=== PATIENT | female | born 1990 | race Caucasian/White ===

== ENCOUNTER 2017-08-03 18:41 | Emergency (ER) | payer SELFPAY ==
[2017-08-03] MEDS ORDERED: ONDANSETRON INJ 4 MG/2 ML VIAL IV ONE (19:38)
[2017-08-03] MEDS ORDERED: MORPHINE SULFATE INJ 10 MG/ML VIAL IV ONE (19:38)
[2017-08-03] MEDS ORDERED: methylPREDNISolone SODIUM SUC 125 MG/2 ML VIAL IV ONE (19:38)
[2017-08-03 19:39] VITALS: TEMP 98.6
--- NOTE | 2017-08-03 19:42 | ED.PDOC ---
History of Present Illness - General Chief Complaint: Headache Stated Complaint: headache x's 7 days Time Seen by Provider: 08/03/17 18:50 Source: patient, RN notes reviewed, Vital Signs reviewed Exam Limitations: no limitations - History of Present Illness Initial Comments: Patient comes in with c/o frontal LOMELI X 7 days. Pressure in nature. + R eye pain initially. B eye watery and stinging intermittently. Saw her PCP who gave her Imitrex which did not help. + photophobia. + L earache. Timing/Duration: 1 week, constant Quality: pressure Head Injury Location: frontal Recent Head Trauma: no recent headache/trauma Improving Factors: nothing Worsening Factors: nothing Associated Symptoms: facial pain, nasal congestion Allergies/Adverse Reactions: Allergies Acetaminophen [From Tylenol] Allergy (Verified 08/03/17 19:36) Aspirin [From Excedrin] Allergy (Verified 08/03/17 19:36) Caffeine [From Excedrin] Allergy (Verified 08/03/17 19:36) Home Medications: Ambulatory Orders Cefuroxime Axetil [Ceftin] 500 mg PO BID #20 tab 08/03/17 Review of Systems - Review of Systems Constitutional: States: no symptoms reported. Denies: chills, fever, malaise EENTM: States: eye pain, blurred vision - R on first day, none since, tearing, ear pain - left, nose congestion, throat pain Respiratory: States: no symptoms reported Cardiology: States: no symptoms reported Gastrointestinal/Abdominal: States: no symptoms reported Musculoskeletal: States: no symptoms reported Skin: States: no symptoms reported Neurological: States: headache. Denies: numbness, paresthesia, tingling, weakness All other Systems: No Change from Baseline Past Medical History (General) - Patient Medical History Hx Seizures: No Hx Stroke: No Hx Dementia: No Hx Asthma: Yes Hx of COPD: No Hx Cardiac Disorders: No Hx Congestive Heart Failure: No Hx Pacemaker: No Hx Hypertension: No Hx Thyroid Disease: No Hx Diabetes: No Hx Gastroesophageal Reflux: No Hx Renal Disease: No Hx Cancer: No Hx of HIV: No Hx Hepatitis C: No Hx MRSA: No Surgical History: tonsillectomy - Vaccination History Hx Tetanus, Diphtheria Vaccination: No Hx Influenza Vaccination: No - Social History Hx Tobacco Use: Yes Hx Alcohol Use: No Hx Substance Use: No Hx Substance Use Treatment: No Hx Depression: No Family Medical History - Family History Mother Family History: No Known Living Status: Still Living Physical Exam - Physical Exam General Appearance: Alert, Comfortable, No apparent distress, Well Developed, Well Groomed, Well Hydrated, Well Nourished Eyes, Ears, Nose, Throat Exam: PERRL/EOMI, pharynx normal, photophobia Neck: non-tender, full range of motion, supple, lymphadenopathy (R), lymphadenopathy (L) Cardiovascular/Chest: regular rate, rhythm, no gallop, no murmur Respiratory: lungs clear, normal breath sounds, no respiratory distress, no accessory muscle use Extremity: non-tender, normal inspection Mental Status: alert, oriented x 3 investment advisor Exam: normal hearing, normal speech, PERRL, other - CN 2-12 are grossly intact Coordination/Gait: normal gait Motor/Sensory: no motor deficit, no sensory deficit Skin Exam: warm/dry, normal color Comments: Vital Signs 08/03/17 19:31 Temperature 98.6 F Pulse Rate [ 67 monitor] Respiratory 16 Rate Blood Pressure 112/66 [Left Arm] O2 Sat by Pulse 95 Oximetry Progress - Progress Progress: 08/03/17 20:44 LOMELI better after morphine. CT scan is normal Will treat for sinusitis with Ceftin. - EKG/XRAY/CT CT Ordered: Yes - Head: no acute intracranial abnormality Departure - Departure Clinical Impression: Sinus headache Time of Disposition: 20:47 Disposition: Discharge to Home or Self Care Condition: Good Departure Forms: ED Discharge - Pt. Copy, Patient Portal Self Enrollment Instructions: DI for Sinus Headache Diet: resume usual diet Activity: increase activity as tolerated Prescriptions: Cefuroxime Axetil [Ceftin] 500 mg PO BID #20 tab Home Medications: Ambulatory Orders Cefuroxime Axetil [Ceftin] 500 mg PO BID #20 tab 08/03/17 Additional Instructions: Use Afrin for 3 days only Over the counter sinus medications Follow up with your doctor in 2-3 days
--- NOTE | 2017-08-03 20:39 | CT ---
EXAM DESCRIPTION: Head CLINICAL HISTORY: Frontal LOMELI X 1 week COMPARISON: None Available TECHNIQUE: Contiguous axial CT images of the head were obtained. Intravenous contrast was administered. Coronal and sagittal reconstructions were created from the axial data. This exam was performed according to our departmental dose-optimization program, which includes automated exposure control, adjustment of the mA and/or kV according to patient size and/or use of iterative reconstruction technique. FINDINGS: There is no evidence of acute mass, mass effect, midline shift or hemorrhage. The ventricles and extra-axial CSF spaces are unremarkable. The brain parenchyma appears normal for the patient's age. No acute abnormalities of the bones is seen. Paranasal sinuses are clear. IMPRESSION: No acute intracranial abnormality. Electronically signed by: Curtis Mayo 08/03/2017 8:38 PM CDT
[2017-08-03] MEDS ORDERED: CEFUROXIME AXETIL TAB 250 MG TAB PO ONE (20:46)
[2017-08-03 21:13] VITALS: BP 109/62; O2SAT 97
== END 2017-08-03 21:14 | disposition home or self-care (01) ==
LOC: ER 18:41
DX: R51 Headache (principal); Z88.8 Allergy status to other drugs, medicaments and biological substances; Z88.6 Allergy status to analgesic agent; Z79.891 Long term (current) use of opiate analgesic
CPT/HCPCS: 70450; 81025; J2270; J2405; J2930